=== PATIENT | female | born 1995 | race Caucasian/White ===

== ENCOUNTER 2022-07-14 20:54 | Emergency (ER) | payer OTHER ==
[2022-07-14 21:09] VITALS: BP 121/79
[2022-07-14 21:21] LABS: BASOPHILS # (AUTO) 0.1 10^3/uL (0.0-0.1); EOSINOPHILS # (AUTO) 0.2 10^3/uL (0.0-0.7); HCT - HEMATOCRIT 43.9 % (37.0-47.0); HGB - HEMOGLOBIN 14.4 g/dL (12.0-16.0); LYMPHOCYTES # (AUTO) 3.9 10^3/uL (1.5-3.5); LYMPHOCYTES % (AUTO) 41.7 %; MEAN CORPUSCULAR HEMOGLOBIN 29.1 pg (27.0-31.0); MEAN CORPUSCULAR HGB CONC 32.8 g/dL (32.0-36.0); MEAN CORPUSCULAR VOLUME 88.7 fL (81.0-99.0); MEAN PLATELET VOLUME 9.3 fL (7.9-10.8); MONOCYTES # (AUTO) 0.7 10^3/uL (0.0-1.0); MONOCYTES % (AUTO) 7.4 %; NEUTROPHILS # (AUTO) 4.5 10^3/uL (1.5-6.6); NEUTROPHILS % (AUTO) 47.7 %; PLT - PLATELET COUNT 283 10^3/uL (130-450); RED BLOOD COUNT 4.95 10^6/uL (4.20-5.40); RED CELL DISTRIBUTION WIDTH 12.5 % (12.0-15.0); WHITE BLOOD COUNT 9.3 x10^3/uL (4.8-10.8)
[2022-07-14 21:56] LABS: ALBUMIN 4.2 g/dL (3.2-5.5); ALBUMIN/GLOBULIN RATIO 1.2 (1.0-2.2); BILIRUBIN,TOTAL 0.3 mg/dL (0.2-1.0); CALCIUM 9.3 mg/dL (8.5-10.3); CREATININE 0.6 mg/dL (0.4-1.0); POTASSIUM 3.5 mmol/L (3.5-5.0); TOTAL PROTEIN 7.7 g/dL (6.7-8.2)
--- NOTE | 2022-07-14 21:58 | ED Physician Documentation ---
History of Present Illness - Stated complaint Stated Complaint: PREG/BLEEDING/CRAMPING - Chief complaint Chief Complaint: Abd Pain - History obtained from History obtained from: Patient - Additonal information Additional information: 27yF with LMP 4 weeks ago, presents after Taking 2 tests at home that were positive. She is concerned that she is having a miscarriage at this time. Patient used 3 pads today with passage of clots and also endorses abdominal cramping and breast tenderness. 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: section - Present Medications Home Medications: Ambulatory Orders Medication Instructions Recorded Confirmed levETIRAcetam [Keppra] 250 mg PO ONCE 07/14/22 - Allergies Allergies/Adverse Reactions: Allergies Allergy/AdvReac Type Severity Reaction Status Date / Time No Known Drug Allergies Allergy Verified 07/14/22 21:08 - Social History Does the pt smoke?: No Smoking Status: Never smoker Does the pt have substance abuse?: No - Immunizations Immunizations are current?: Yes - POLST Patient has POLST: No PD ED PE NORMAL - Vitals Vital signs reviewed: Yes - General General: Alert and oriented X 3, No acute distress, Well developed/nourished - HEENT HEENT: Atraumatic, PERRL, EOMI - Cardiac Cardiac: RRR - Respiratory Respiratory: No respiratory distress, Clear bilaterally - Abdomen Abdomen: Non tender, Non distended Results - Vitals Vitals: Vital Signs - 24 hr 07/14/22 21:02 Temperature 36.4 C L Heart Rate 72 Respiratory 16 Rate Blood Pressure 121/79 O2 Saturation 99 Oxygen O2 Source Room air - Labs Labs: Laboratory Tests 07/14/22 07/14/22 07/14/22 21:16 21:16 21:16 WBC 9.3 RBC 4.95 Hgb 14.4 Hct 43.9 MCV 88.7 MCH 29.1 MCHC 32.8 RDW 12.5 Plt Count 283 MPV 9.3 Neut # (Auto) 4.5 Lymph # (Auto) 3.9 H Thurston # (Auto) 0.7 Eos # (Auto) 0.2 Baso # (Auto) 0.1 Absolute Nucleated RBC 0.00 Nucleated RBC % 0.0 HCG, Quant 1.13 Blood Type O POSITIVE PD Medical Decision Making - ED course ED course: 27-year-old woman presents for evaluation for possible miscarriage. Her blood hCG is showing she is not . Her ultrasound uncovered no pathology. Reassurance provided and return precautions given. Plan to follow-up with [facility]W. Departure - Departure Disposition: 01 Home, Self Care Clinical Impression: Encounter for medical screening examination Condition: Good Instructions: ED Screening Exam Medical Nonurgent Comments: You are seen in the emergency department for evaluation for possible . Your blood test was negative. Your ultrasound uncovered no signs of . You are likely experiencing your regular monthly menses. Please follow-up with your LMSW and return to the emergency department if you have other concerns.
--- NOTE | 2022-07-14 22:30 | Ultrasound Report ---
PROCEDURE: OB First Trimester w/TV INDICATIONS: bleeding, cramping OUTSIDE/PRIOR DATING DATA: Last menstrual period (LMP): 06/14/2022. LMP-based estimated date of delivery (SUSAN): 03/21/2023. TECHNIQUE: Real-time scanning was performed of the fetus and maternal pelvic organs, with image documentation. Endovaginal scanning was also performed to better visualize the fetus and maternal ovaries. COMPARISON: None. FINDINGS: Uterus: No intrauterine is identified. The endometrium is normal in thickness. Ovaries: The ovaries appear within normal size limits. There is a hypoechoic oval structure within th e right ovary measuring up to 1.6 cm suggestive of a corpus luteum. No adnexal masses identified. IMPRESSION: 1. No intrauterine identified. 2. No adnexal masses. Reviewed by: Fabio Aponte MD on 07/14/2022 10:29 PM PDT Approved by: Fabio Aponte MD on 07/14/2022 10:29 PM PDT Station ID: [id number]
== END 2022-07-14 22:03 | disposition home or self-care (01) ==
LOC: ED 20:54
DX: N93.9 Abnormal uterine and vaginal bleeding, unspecified (principal)
CPT/HCPCS: 36415; 80053; 83690; 84702; 85025; 86900; 86901; 99283; 99284